=== PATIENT | female | born 1960 | race American Indian/Alaskan Native ===

== ENCOUNTER 2017-11-18 20:11 | Emergency (ER) | payer MEDICAID ==
[2017-11-18] MEDS ORDERED: TORADOL IV ONE (20:47)
--- NOTE | 2017-11-18 20:50 | Emergency Department Report ---
ED Chest Pain HPI - General Stated Complaint: CHEST PAIN Time Seen by Provider: 11/18/17 20:15 Source: patient Mode of arrival: Ambulatory Limitations: No Limitations - History of Present Illness Initial Comments: 57-year-old female with a past medical history of HIV and history of 1 kidney ( loss of the kidney as a child) presents to the hospital complains of lower sternal chest pain since yesterday. Pain is constant and felt like pressure yesterday and today it feels more stabbing. Worse with movement and palpation. Mild shortness of breath the last night that resolved today. Mild nausea a "little vomit". She denies diaphoresis, cough, or fever. CD4 count one month ago was 310. Patient follows with [facility]. She is also on pain management for degenerating spine arranged by Jarrod. Patient states she does not take the narcotic pills given history of drug abuse. She only takes Motrin when necessary. He denies history of PE/DVT, recent travel, or calf tenderness/ edema. Patient does smoke cigarettes. She states that her sister of [place] 42 mother of [place] at 84 and never had a previous stress test. - Related Data Allergies Allergy/AdvReac Type Severity Reaction Status Date / Time aspirin Allergy Rash Verified 11/18/17 20:52 Penicillins Allergy Rash Verified 11/18/17 20:52 Heart Score - HEART Score History: Slightly suspicious EKG: Non-specific Age: 45-65 Risk factors: 1-2 risk factors Troponin: < normal limit HEART Score: 3 ED Review of Systems ROS: Stated complaint: CHEST PAIN Other details as noted in HPI Comment: All other systems reviewed and negative ED Past Medical Hx - Past Medical History Previous Medical History?: Yes Hx HIV: Yes Additional medical history: 1 kidney ED Physical Exam - General Limitations: No Limitations - Other Other exam information: General: No limitations, patient is alert in no acute distress Head exam: Atraumatic, normocephalic Eyes exam: Normal appearance, pupils equal reactive to light, extraocular movements intact ENT: Moist mucous membrane Neck exam: Normal inspection, full range of motion, no meningismus nontender Respiratory exam: Clear to auscultation bilateral, no wheezes, rales, crackles Cardiovascular: Normal rate and rhythm, normal heart sounds. Reproducible sternal chest wall tenderness Abdomen: Soft, nondistended, and nontender, with normal bowel sounds, no rebound, or guarding Extremity: Full range of motion normal inspection no deformity, no calf tenderness or edema Back: Normal Inspection, full range of motion, no tenderness Neurologic: Alert, oriented x3, cranial nerves intact, no motor or sensory deficit Psychiatric: normal affect, normal mood Skin: Warm, dry, intact ED Course Vital Signs 11/18/17 11/18/17 11/18/17 20:32 20:34 20:46 Temperature 98.2 F Pulse Rate 88 64 Respiratory 24 16 27 H Rate Blood Pressure 136/75 145/87 Blood Pressure [Right] O2 Sat by Pulse 99 98 100 Oximetry 11/18/17 11/18/17 20:51 22:47 Temperature Pulse Rate 62 Respiratory 19 18 Rate Blood Pressure Blood Pressure 105/67 [Right] O2 Sat by Pulse 99 99 Oximetry - Reevaluation(s) Reevaluation #1: 11/18/17 23:09 pain improved after toradol ROBERT score - Robert Score Age > 65: (0) No Aspirin use within the Past 7 Days: (0) No 3 or more CAD Risk Factors: (0) No 2 or more Angina events in past 24 hrs: (1) Yes Known CAD with more than 50% Stenosis: (0) No Elevated Cardiac Markers: (0) No ST Deviation Greater than 0.5mm: (0) No ROBERT Score: 1 ED Medical Decision Making - Lab Data Result diagrams: 11/18/17 20:37 11/18/17 20:37 Lab Results 11/18/17 11/18/17 11/18/17 Range/Units 20:37 20:37 20:37 WBC 4.7 (4.5-11.0) K/mm3 RBC 3.72 (3.65-5.03) M/mm3 Hgb 12.3 (10.1-14.3) gm/dl Hct 36.0 (30.3-42.9) % MCV 97 (79-97) fl MCH 33 H (28-32) pg MCHC 34 (30-34) % RDW 14.4 (13.2-15.2) % Plt Count 315 (140-440) K/mm3 Lymph % (Auto) 43.7 H (13.4-35.0) % [place] % (Auto) 12.1 H (0.0-7.3) % Eos % (Auto) 4.8 H (0.0-4.3) % Baso % (Auto) 1.3 (0.0-1.8) % Lymph # 2.0 (1.2-5.4) K/mm3 [place] # 0.6 (0.0-0.8) K/mm3 Eos # 0.2 (0.0-0.4) K/mm3 Baso # 0.1 (0.0-0.1) K/mm3 Seg Neutrophils % 38.1 L (40.0-70.0) % Seg Neutrophils # 1.8 (1.8-7.7) K/mm3 PT 12.2 (12.2-14.9) Sec. INR 0.86 L (0.87-1.13) Sodium 139 (137-145) mmol/L Potassium 3.9 (3.6-5.0) mmol/L Chloride 108.8 H (98-107) mmol/L Carbon Dioxide 17 L (22-30) mmol/L Anion Gap 17 mmol/L BUN 27 H (7-17) mg/dL Creatinine 1.0 (0.7-1.2) mg/dL Estimated GFR > 60 ml/min BUN/Creatinine Ratio 27 % Glucose 100 (65-100) mg/dL Calcium 9.0 (8.4-10.2) mg/dL Total Bilirubin < 0.20 (0.1-1.2) mg/dL AST 19 (5-40) units/L ALT 9 (7-56) units/L Alkaline Phosphatase 87 (35-129) units/L Troponin T < 0.010 (0.00-0.029) ng/mL Total Protein 7.7 (6.3-8.2) g/dL Albumin 4.0 (3.9-5) g/dL Albumin/Globulin Ratio 1.1 % - EKG Data -: EKG Interpreted by Me (ems ekg) EKG shows normal: sinus rhythm, axis (qrs 61), QRS complexes (qrsd .080s), ST-T waves (diffuse peak t waves, no stemi) Rate: normal - Radiology Data Radiology results: report reviewed read by radiology cxr Pa/lat: naf - Medical Decision Making Patient's chest pain is constant since yesterday, reproducible with palpation, EKG without ischemia and an negative troponin. Patient received Toradol for pain. Discharged home with symptomatic treatment with follow-up will be encouraged Respiratory rate of 27 and is incorrect patient has not had any tachypnea while in the ED pt received NS 1 L bolus for elevated bun - Differential Diagnosis mi, unstable angina, costochondritis, PE, chest wall strain Critical Care Time: No Critical care attestation.: If time is entered above; I have spent that time in minutes in the direct care of this critically ill patient, excluding procedure time. ED Disposition Clinical Impression: Costochondritis, acute Disposition: DC-01 TO HOME OR SELFCARE Is pt being admited?: No Does the pt Need Aspirin: No Condition: Stable Instructions: Costochondritis (ED) Additional Instructions: Continue your current medications as prescribed. Continue Motrin your other pain medication as needed for pain. Follow up with your doctor (or doctor provided). Return if symptoms worsen as indicated by your discharge instructions Referrals: PRIMARY CARE, [Primary Care Provider] - 2-3 Days SILVESTRE HARTMAN DO [Staff Physician] - 3-5 Days (primary care doctor) Time of Disposition: 23:12
[2017-11-18 20:51] LABS: Basophils # (Auto) 0.1 K/mm3 (0.0-0.1); Basophils % (Auto) 1.3 % (0.0-1.8); Eosinophils # (Auto) 0.2 K/mm3 (0.0-0.4); Eosinophils % (Auto) 4.8 % (0.0-4.3); Hemoglobin 12.3 gm/dl (10.1-14.3); Lymphocytes % (Auto) 43.7 % (13.4-35.0); Mean Corpuscular HGB Conc 34 % (30-34); Mean Corpuscular Hemoglobin 33 pg (28-32); Mean Corpuscular Volume 97 fl (79-97); Monocytes # (Auto) 0.6 K/mm3 (0.0-0.8); Monocytes % (Auto) 12.1 % (0.0-7.3); Platelet Count 315 K/mm3 (140-440); Red Blood Count 3.72 M/mm3 (3.65-5.03); Red Cell Distribution Width 14.4 % (13.2-15.2)
[2017-11-18 20:59] LABS: INR 0.86 (0.87-1.13)
[2017-11-18 21:08] LABS: Alanine Aminotransferase 9 units/L (7-56); BUN/Creatinine Ratio 27; Blood Urea Nitrogen 27 mg/dL (7-17); Hemolysis Index 4
[2017-11-18] MEDS ORDERED: NACL 0.9% 1000 ML 1,000 ML IV ONE (21:28)
--- NOTE | 2017-11-18 21:37 | XRay Report ---
FINAL REPORT PROCEDURE: Chest. TECHNIQUE: PA and lateral views. HISTORY: Chest pain. COMPARISON: No prior studies are available for comparison. FINDINGS: The heart and mediastinum appear normal. The lungs are clear and well expanded. There are no pleural effusions. The soft tissues are unremarkable. There are deformities of the right 8th and 9th ribs suggesting old fractures. IMPRESSION: No evidence of acute disease.
[2017-11-18 22:48] VITALS: BP 105/67
== END 2017-11-18 23:34 | disposition home or self-care (01) ==
LOC: ED 20:11
DX: M94.0 Chondrocostal junction syndrome [Tietze] (principal); Z88.0 Allergy status to penicillin; Z88.6 Allergy status to analgesic agent
CPT/HCPCS: 36415; 71046; 80053; 84484; 85025; 85610; 93005; 93010; 96361; 96374; 99284; J1885